=== PATIENT | female | born 1975 ===

== ENCOUNTER 2023-07-21 05:29 | Day surgery (SDC) | payer OTHER ==
[2023-07-18 09:07] LABS: HEMATOCRIT 36.3 % (36.0-45.00); HEMOGLOBIN 12.5 g/dL (12.0-15.00); MEAN CELL VOLUME 82.2 fL (80.00-100.00); MEAN CORPUSCULAR HEMOGLOBIN 28.3 pg (27.00-32.0); MEAN CORPUSCULAR HGB CONC 34.4 g/dl (32.0-36.0); PLATELET COUNT 313 K/uL (150-450); RED BLOOD COUNT 4.41 M/uL (4.00-6.00); RED CELL DISTRIBUTION WIDTH 14.6 % (11.5-14.5)
[2023-07-18 09:29] LABS: INR 1.01; PARTIAL THROMBOPLASTIN TIME 28.6 SECONDS (22.0-34.0); PROTHROMBIN TIME 10.6 SECONDS (9.0-11.5)
[2023-07-18 09:43] LABS: PH,URINE 5.5 (5.0-8.0); URINE APPEARANCE Clear; URINE BILIRRUBIN Negative (NEGATIVE); URINE BLOOD Negative; URINE COLOR Yellow; URINE GLUCOSE Negative (NEGATIVE); URINE LEUKOCYTE Negative; URINE NITRATE Negative; URINE PROTEIN Negative (NEGATIVE)
[2023-07-18 09:47] LABS: URINE BACTERIA 1913.8 uL (0.0-1933); URINE EPITHELIAL CELLS 52.5 uL (0.0-38.8); URINE RBC 7.3 uL (0.0-20.8); URINE WBC 14.5 uL (0.0-23.2)
[2023-07-18 10:36] LABS: ALBUMIN 3.8 gm/dL (3.4-5.0); BILIRUBIN TOTAL 0.95 mg/dL (0.3-1.2); CALCIUM 8.9 mg/dL (8.5-10.1); CREATININE SERUM 0.82 mg/dL (0.55-1.02); GFR 74.09; POTASSIUM 4.11 mEq/L (3.5-5.1); TOTAL PROTEIN 7.8 gm/dL (6.4-8.2); TSH 1.97 uIU/mL (0.358-3.74)
[2023-07-21] MEDS ORDERED: MORGIDOX100 MG PO (08:46)
[2023-07-21] MEDS ORDERED: NAPR500T14 PO (08:46)
== END 2023-07-21 14:20 | disposition home or self-care (01) ==
LOC: CIR.AMB 05:29
PROVIDERS: ATTEND Obstetrics & Gynecology
DX: N84.0 Polyp of corpus uteri (principal); D25.0 Submucous leiomyoma of uterus; N92.4 Excessive bleeding in the premenopausal period; N93.8 Other specified abnormal uterine and vaginal bleeding; Z20.822 Contact with and (suspected) exposure to COVID-19; I10 Essential (primary) hypertension; Z88.1 Allergy status to other antibiotic agents